=== PATIENT | female | born 1965 | race Caucasian/White ===

== ENCOUNTER 2019-12-18 00:43 | Day surgery (SDC) | payer OTHER, SELFPAY ==
[2019-12-11 15:05] VITALS: BMI 26.6
[2019-12-18 06:30] VITALS: BP 107/67; PULSE 79; RESP 18; TEMP 37; O2SAT 96; BMI 27.1
--- NOTE | 2019-12-18 06:53 | WPDANESEPPF ---
Anes - Initial Pre Proc Eval Procedure: Operation Date: 12/18/19 07:30 Proposed Procedures p Esophagogastroduodenoscopy - Aleksandar Rutherford MD Date/Time: 12/18/19 06:53 Surgeon: Aleksandar Rutherford MD Pre Op Diagnosis: Epigastric pain Patient Data Age: 54 Gender: F Height: 5 ft 6 in Weight: 76.3 kg Last Vital Signs Temp 37.0 C 12/18/19 06:30 Pulse 79 12/18/19 06:30 Resp 18 12/18/19 06:30 BP 107/67 12/18/19 06:30 Pulse Ox 96 12/18/19 06:30 Allergies Allergy/AdvReac Type Severity Reaction Status Date / Time morphine AdvReac Unknown Vomiting Verified 12/18/19 06:43 Home Medications Medication Instructions Recorded Confirmed Type Estropure 1 tab-cap PO DAILY 12/11/19 12/11/19 History Thyrotain 1 tab-cap PO DAILY 12/11/19 12/11/19 History Tudca 500 mg PO DAILY 12/11/19 12/11/19 History ascorbic acid (vitamin C) [Vitamin 1 g PO DAILY 12/11/19 12/11/19 History C] cholecalciferol (vitamin D3) 2,000 unit PO DAILY 12/11/19 12/11/19 History [Vitamin D3] cyanocobalamin (vitamin B-12) 1,000 mcg PO DAILY 12/11/19 12/11/19 History [Vitamin B-12] oucdx-7e-tsh-epa-fish oil [[place]-3 300 cap PO DAILY 12/11/19 12/11/19 History Fish Oil] vitamin B complex 1 cap PO DAILY 12/11/19 12/11/19 History vitamin E 1,000 unit PO DAILY 12/11/19 12/11/19 History vitamin K2 40 mcg PO DAILY 12/11/19 12/11/19 History Patient hx anesthesia problems: none Family hx anesthesia problems: none [facility] Past Medical History Medical History GERD (gastroesophageal reflux disease) Anes - Eval Final PreProcedure Day of Procedure 12/18/19 06:53 Patient weight: overweight Heart: regular rate and rhythm Lungs: clear to auscultation Airway: Mallampati scale class 1 Neurological: alert and oriented Last oral intake: >/= 8 hours ASA classification: II Emergent: no Anesthetic plan: proceed Anesthesia type and monitoring: general GIVS and standard monitoring Informed Consent: The patient's anesthetic plan and its attendant risks and benefits were discussed with the patient/family/POA. Questions were solicited and answers provided to the satisfaction of the patient/family/POA.
[2019-12-18] MEDS: LACTATED RINGERS 1,000 ML 150 ML IV CONT (07:05)
--- NOTE | 2019-12-18 07:31 | P.CONGI_ITS ---
Assessment and Plan Additional Plan This is a 54-year-old white female patient seen in evaluation for abdominal pain. Patient has had mid epigastric pain for several months. She describes this is coming in episodes. The episodes become more intense. They last for several hours typically. Previously they occurred perhaps 1 time a month but have become more frequent recently. She states these are not related to eating. These are not related to activity. In the past she has tried omeprazole with no relief of pain. She recently has tried a dietary supplement called katharine ursodeoxycholic acid. Family history is noncontributory. Current medications include fish oil testosterone thyroid replacement probiotics Family history noncontributory. Physical exam reveals patient to be alert. Oriented x3. HEENT exam unremarkable. She is anicteric. lungs are clear to auscultation and percussion. Heart is without murmur or extra sounds. Abdominal exam bowel sounds present soft nontender with no hepatosplenomegaly. Digital external rectal exam is normal. Impression episodic epigastric pain. Etiology remains unclear. No evidence of gallbladder disease to date. Plan is for a trial of antacids. Liver function tests will be obtained. An EGD will be performed. GI Consult Note Consult date/time: 12/18/19 07:31 HPI: Mita Nicole is a 54 year old female PMFSH Past Medical History Medical History GERD (gastroesophageal reflux disease) Meds Home Medications and Allergies Home Medications Medication Instructions Recorded Confirmed Type Estropure 1 tab-cap PO DAILY 12/11/19 12/11/19 History Thyrotain 1 tab-cap PO DAILY 12/11/19 12/11/19 History Tudca 500 mg PO DAILY 12/11/19 12/11/19 History ascorbic acid (vitamin C) [Vitamin 1 g PO DAILY 12/11/19 12/11/19 History C] cholecalciferol (vitamin D3) 2,000 unit PO DAILY 12/11/19 12/11/19 History [Vitamin D3] cyanocobalamin (vitamin B-12) 1,000 mcg PO DAILY 12/11/19 12/11/19 History [Vitamin B-12] ogmpw-1i-pkm-epa-fish oil [[place]-3 300 cap PO DAILY 12/11/19 12/11/19 History Fish Oil] vitamin B complex 1 cap PO DAILY 12/11/19 12/11/19 History vitamin E 1,000 unit PO DAILY 12/11/19 12/11/19 History vitamin K2 40 mcg PO DAILY 12/11/19 12/11/19 History Allergies Allergy/AdvReac Type Severity Reaction Status Date / Time morphine AdvReac Unknown Vomiting Verified 12/18/19 06:43 Vital Signs Vital Signs - 24 hr 12/18/19 06:30 Temperature 37.0 C Pulse Rate 79 Respiratory Rate 18 Blood Pressure 107/67 Pulse Oximetry 96
[2019-12-18 07:43] VITALS: BP 87/36; PULSE 73; RESP 20; O2SAT 98
[2019-12-18 07:53] VITALS: BP 108/58; PULSE 75; RESP 20; O2SAT 98
[2019-12-18 08:03] VITALS: BP 107/68; PULSE 66; RESP 20; O2SAT 100
== END 2019-12-18 08:24 | disposition home or self-care (01) ==
PROVIDERS: Visit Provider Internal Medicine Gastroenterology
PROC: 0DJ08ZZ Inspection of Upper Intestinal Tract, Via Natural or Artificial Opening Endoscopic (ICD-10-PCS; CPT 43235; principal; 2019-12-18 07:30)
DX: R10.13 Epigastric pain (principal); K21.9 Gastro-esophageal reflux disease without esophagitis
CPT/HCPCS: 43239; J2704; J7120

== ENCOUNTER 2019-12-27 12:50 | Outpatient (CLI) | payer OTHER, SELFPAY ==
--- NOTE | ~2019-12-27 | NM_ITS ---
EXAMINATION: NM hepatobiliary wo pharm DATE: 12/27/2019 17:10 INDICATION: Epigastric pain. COMPARISON: Ultrasound dated 08/04/2017 TECHNIQUE: 0.7 mCi Tc-99m mebrofenin (Choletec) was administered intravenously. Sequential anterior s cintigraphic images of the abdomen were obtained over one hour. 1 and 4 hour delayed anterior and rig ht lateral scintigrams were also obtained. FINDINGS: There is normal clearance of radiotracer from the blood pool. There is homogeneous tracer u ptake by the liver. Activity progresses to the duodenum by 20 minutes. The gallbladder is not visual ized on the 1 hour images. There is subtle accumulation of a small amount of activity in the region o f the gallbladder on both the anterior and right lateral images on the 4 hour delayed images. IMPRESSION: 1. Delayed accumulation of a small amount of activity in the region of the gallbladder suggestive of chronic cholecystitis. Specificity for exclusion of acute cholecystitis is however decreased by the relatively small amount of remaining hepatic/biliary activity on the 4 hour delayed images and if the re is continued clinical concern for acute cholecystitis could consider ultrasound for further evalua tion. Reviewed, dictated and finalized at location A. RWORKER LASTING IMPRESSION: 1. Delayed accumulation of a small amount of activity in the region of the gal lbladder suggestive of chronic cholecystitis. Specificity for exclusion of acut e cholecystitis is however decreased by the relatively small amount of remainin g hepatic/biliary activity on the 4 hour delayed images and if there is continu ed clinical concern for acute cholecystitis could consider ultrasound for furth er evaluation.
== END 2019-12-27 12:51 | disposition home or self-care (01) ==
LOC: ANHIMG 12:53
PROVIDERS: Visit Provider Internal Medicine Gastroenterology
DX: R10.13 Epigastric pain (principal)
CPT/HCPCS: 78226; A9537

== ENCOUNTER → 2020-01-16 10:25 | Outpatient (CLI) | payer OTHER, SELFPAY ==
--- NOTE | ~2020-01-16 | MM_ITS ---
EXAMINATION: MM screening [facility] BI w steve HISTORY: Screening mammogram TECHNIQUE: Craniocaudal and mediolateral oblique 3-D tomosynthesis images were obtained and synthetic 2-D images were generated. CAD analysis was submitted and interpreted. COMPARISON: Comparison to multiple prior studies sequentially, with oldest reviewed study dated 08/20. BREAST PARENCHYMAL COMPOSITION: The breasts are heterogeneously dense, which may obscure small masses . FINDINGS: There are developing clusters of calcifications bilaterally involving the lower inner quadr ant of the right breast and upper outer quadrant of the left breast. No suspicious masses or architec tural distortion are identified. IMPRESSION: 1. Developing clusters of bilateral breast calcifications. 2. Magnification views are recommended. BI-RADS Category 0: Incomplete: Needs additional imaging evaluation. Reviewed, dictated and finalized at location A. TOR SERVICES COORDINATOR
== END ==
PROVIDERS: Visit Provider Nurse Practitioner Obstetrics & Gynecology
DX: Z12.31 Encounter for screening mammogram for malignant neoplasm of breast (principal); R92.8 Other abnormal and inconclusive findings on diagnostic imaging of breast
CPT/HCPCS: 77063; 77067

== ENCOUNTER 2020-01-17 07:52 | Outpatient (CLI) | payer OTHER, SELFPAY ==
--- NOTE | ~2020-01-17 | US_ITS ---
EXAMINATION: US right upper quadrant EXAM DATE: 01/17/2020 08:15 INDICATION: Epigastric pain. TECHNIQUE: Multiple grayscale and Doppler images of the abdomen right upper quadrant were obtained (b y a technologist who performed the scan) and subsequently reviewed. Comparison is made to prior exami nation from 08/04/2017. FINDINGS: The pancreatic head and body are normal in appearance. The pancreatic tail is not visualized. The l iver has normal echogenicity and contour. There are no focal liver lesions identified. There is no evidence of intrahepatic biliary duct dilation. Portal venous flow was seen in the hepatopedal, nor mal direction and has normal Doppler waveform. No right-sided hydronephrosis. Common bile duct measures 6 mm, which is normal. The gallbladder wall is normal in thickness, with ex pected amount of distention. No sonographic evidence of pericholecystic fluid. There is cholelithia sis with wall echo shadow sign. Technologist performing exam reports patient did not demonstrate so nographic Ritchie's sign. Please note that this sign is less reliable in patients who have received p ain medication. IMPRESSION: 1. Cholelithiasis. Reviewed, dictated and finalized at location B. P SCIENTIST IMPRESSION: 1. Cholelithiasis.
== END 2020-01-17 07:53 | disposition home or self-care (01) ==
LOC: ANHIMG 07:55
PROVIDERS: Visit Provider Internal Medicine Gastroenterology
DX: R10.13 Epigastric pain (principal); K80.20 Calculus of gallbladder without cholecystitis without obstruction
CPT/HCPCS: 76705

== ENCOUNTER 2020-03-27 06:29 | Outpatient (CLI) | payer OTHER, SELFPAY ==
[2020-03-27 16:20] LABS: SARS-CoV-2 RNA PCR Negative
== END 2020-03-27 06:30 | disposition home or self-care (01) ==
LOC: ANHCOVIDDT 06:29
PROVIDERS: Surgery; Visit Provider Surgery
DX: Z01.818 Encounter for other preprocedural examination (principal); Z11.59 Encounter for screening for other viral diseases; K80.20 Calculus of gallbladder without cholecystitis without obstruction
CPT/HCPCS: 87635; C9803; U0003

== ENCOUNTER 2020-03-27 09:06 | Outpatient (CLI) | payer OTHER, SELFPAY ==
[2020-03-27 09:57] LABS: Alanine Aminotransferase 16 U/L (4-35); Albumin Level 3.9 g/dL (3.5-5.1); Alkaline Phosphatase 50 U/L (38-126); Amylase 74 U/L (30-110); Aspartate Amino Transferase 25 U/L (14-36); Bilirubin,Total 0.4 mg/dL (0.2-1.3); Lipase 132 U/L (23-300)
--- NOTE | 2020-03-27 09:59 | ECG_ITS ---
Measurements Intervals [place] Rate: 57 P: 0 AL: 196 QRS: 69 QRSD: 86 T: 29 QT: 403 QTc: 394 Interpretive Statements SINUS BRADYCARDIA BORDERLINE ECG Electronically Signed On 03-27-2020 10:29:04 CDT by Neno Silveira D.O.
== END 2020-03-27 09:07 | disposition home or self-care (01) ==
PROVIDERS: PCP Family Medicine; Visit Provider Surgery
DX: Z01.818 Encounter for other preprocedural examination (principal); K80.20 Calculus of gallbladder without cholecystitis without obstruction
CPT/HCPCS: 36415; 80076; 82150; 83690; 86850; 86900; 86901; 93005

== ENCOUNTER 2020-03-30 00:07 | Day surgery (SDC) | payer OTHER, SELFPAY ==
[2020-03-24 18:11] VITALS: BMI 27.2
[2020-03-30] VITALS (8 sets, daily range): BP systolic 97–144; BP diastolic 47–65; PULSE 44–69; RESP 10–18; TEMP 36.1–37.2; O2SAT 95–100
[2020-03-30] MEDS: IBUPROFEN IV 800 MG/200 ML 800 MG/200 ML BAG 400 MG IVPB (11:45)
[2020-03-30] MEDS: LACTATED RINGERS 1,000 ML 30 ML IV CONT ×2 (12:22→13:58)
--- NOTE | 2020-03-30 12:30 | WPDANESEPPF ---
Anes - Initial Pre Proc Eval Procedure: Operation Date: 03/30/20 13:30 Proposed Procedures p Laparoscopic Cholecystectomy, Possible Open - Virgil Harden DO Date/Time: 03/30/20 12:30 Surgeon: Virgil Harden DO Pre Op Diagnosis: Symptomatic cholelithiasis Patient Data Age: 54 Gender: F Height: 5 ft 6 in Weight: 75.5 kg Last Vital Signs Temp 37.2 C 03/30/20 12:00 Pulse 63 03/30/20 12:00 Resp 18 03/30/20 12:00 BP 110/58 L 03/30/20 12:00 Pulse Ox 99 03/30/20 12:00 Allergies Allergy/AdvReac Type Severity Reaction Status Date / Time morphine Allergy Severe Vomiting Verified 03/30/20 12:11 Home Medications Medication Instructions Recorded Confirmed Type Estropure 1 tab-cap PO DAILY 12/11/19 03/30/20 History Thyrotain 1 tab-cap PO TID 12/11/19 03/30/20 History ascorbic acid (vitamin C) [Vitamin 1 g PO DAILY 12/11/19 03/30/20 History C] cyanocobalamin (vitamin B-12) 1,000 mcg PO DAILY 12/11/19 03/30/20 History [Vitamin B-12] vitamin B complex 1 cap PO DAILY 12/11/19 03/30/20 History betaine HCl 500 mg PO DAILY 03/24/20 03/30/20 History cholecalciferol (vitamin D3) 125 mcg PO DAILY 03/24/20 03/30/20 History niacin 500 mg PO DAILY 03/24/20 03/30/20 History yiooy-9z-qkx-epa-fish oil [Fish 1 cap PO DAILY 03/24/20 03/30/20 History Oil] progesterone micronized 100 mg PO HS 03/24/20 03/30/20 History vitamin E 400 unit PO DAILY 03/24/20 03/30/20 History Patient hx anesthesia problems: none Family hx anesthesia problems: none PMFSH Past Medical History Medical History GERD (gastroesophageal reflux disease) Surgical History Surgical History History of ankle surgery left 2005 History of foot surgery right in 2001 left [id number] History of neck surgery 2007 History of rotator cuff surgery 2001 Family History Family History Father Hypertension Social History Social History Smoking status: Never smoker Alcohol intake: current Anes - Eval Final PreProcedure Day of Procedure 03/30/20 12:30 Patient weight: overweight Heart: regular rate and rhythm Lungs: clear to auscultation Airway: Mallampati scale class 1 Neurological: alert and oriented Last oral intake: >/= 8 hours ASA classification: II Emergent: no Anesthetic plan: proceed Anesthesia type and monitoring: general ETT and standard monitoring Informed Consent: The patient's anesthetic plan and its attendant risks and benefits were discussed with the patient/family/POA. Questions were solicited and answers provided to the satisfaction of the patient/family/POA.
--- NOTE | 2020-03-30 12:55 | PM.IMHP ---
H&P: HPI History of Present Illness Chief complaint: Symptomatic cholelithiasis Narrative: Mita Nicole is a 54 year old female who presents for elective lap demetra. She was having intermittent upper abdominal pain. U/s showed cholelithiasis. Review of Systems Review of Systems: All systems reviewed & are unremarkable except as noted in HPI and below Eyes: Eyes: Denies change in vision ENT: Denies hearing loss, Denies neck pain and Denies sore throat Cardiovascular: Cardiovascular: Denies chest pain and Denies dyspnea Respiratory: Respiratory: Denies cough, Denies dyspnea and Denies wheezing Genitourinary: Genitourinary: Denies hematuria and Denies dysuria Musculoskeletal: Musculoskeletal: Denies arthralgias, Denies joint swelling and Denies neck pain Allergic/Immunologic: Allergic/Immunologic: Denies wheezing [facility] Past Medical History Medical History GERD (gastroesophageal reflux disease) Surgical History Surgical History History of ankle surgery left 2006 History of foot surgery right in 2001 left [id number] History of neck surgery 2008 History of rotator cuff surgery 2001 Family History Family History Father Hypertension Social History Social History Smoking status: Never smoker Alcohol intake: current Meds Home Medications and Allergies Home Medications Medication Instructions Recorded Confirmed Type Estropure 1 tab-cap PO DAILY 12/11/19 03/30/20 History Thyrotain 1 tab-cap PO TID 12/11/19 03/30/20 History ascorbic acid (vitamin C) [Vitamin 1 g PO DAILY 12/11/19 03/30/20 History C] cyanocobalamin (vitamin B-12) 1,000 mcg PO DAILY 12/11/19 03/30/20 History [Vitamin B-12] vitamin B complex 1 cap PO DAILY 12/11/19 03/30/20 History betaine HCl 500 mg PO DAILY 03/24/20 03/30/20 History cholecalciferol (vitamin D3) 125 mcg PO DAILY 03/24/20 03/30/20 History niacin 500 mg PO DAILY 03/24/20 03/30/20 History wkjrf-7x-vss-epa-fish oil [Fish 1 cap PO DAILY 03/24/20 03/30/20 History Oil] progesterone micronized 100 mg PO HS 03/24/20 03/30/20 History vitamin E 400 unit PO DAILY 03/24/20 03/30/20 History Allergies Allergy/AdvReac Type Severity Reaction Status Date / Time morphine Allergy Severe Vomiting Verified 03/30/20 12:11 Vital Signs Vital Signs - 24 hr 03/30/20 12:00 Temperature 37.2 C Pulse Rate 63 Respiratory Rate 18 Blood Pressure 110/58 L Pulse Oximetry 99 Exam Const: General: alert; No acute distress Orientation/consciousness: patient oriented x3 Limitations: no limitations HENMT: Head: normocephalic and atraumatic Ears: hearing grossly normal bilaterally General nose exam: Normal external nose present and Normal nares present Mouth: Yes Normal oral and palatal mucosa present and Yes moist mucous membranes Eyes: General: appearance normal, both eyes and all related structures Conjunctivae: conjunctivae normal Sclera: sclerae normal Pupils: Equal, round and reactive pupils present EOM: EOMs intact bilaterally Neck: Neck: normal visual inspection, full ROM, no lymphadenopathy, supple and no JVD Lymphatic: no lymphadenopathy noted Chest: Chest palpation & inspection: normal inspection of the chest Resp: Effort & Inspection: normal respiratory effort and able to speak in complete sentences Auscultation: clear to auscultation bilaterally Percussion: percussion normal Cardio: Jugular venous distension: no JVD Rate: regular rate Rhythm: regular rhythm Heart sounds: S1 normal heart sound present and S2 normal heart sound present Peripheral pulses: Peripheral pulses 2+ throughout GI: Inspection: normal to inspection GI Palp: No abdominal tenderness, Yes Soft to palpation, No Guarding due to palpation present (GI), No Philip
[2020-03-30] MEDS: ceFAZolin 2 GM/D5W 50 ML 2 GM/50 ML BAG IVPB (13:03)
[2020-03-30] MEDS: BUPIVACAINE/EPINEPHRINE 0.5% 30 ML VIAL INFILTRATE (13:27)
--- NOTE | 2020-03-30 14:15 | PM.PROC ---
Procedure Note - Detailed Date of procedure: 03/30/20 Pre-op diagnosis: Symptomatic cholelithiasis Post-op diagnosis: same Procedure performed: Laparoscopic Cholecystectomy Description of procedure: Procedure as well as risks, benefits, and alternatives were discussed with patient. Written consent was obtained and placed in chart prior to procedure. The patient was brought back to surgical suite. Patient was placed in supine position on operating table. Time-out was done to confirm patient and procedure. Patient was then intubated by the anesthesia department. Abdomen was prepped and draped in sterile fashion using chlorhexidine prep. 0.5% bupivacaine with epinephrine was infiltrated at each site of incision. A 5 millimeter incision was made near the umbilicus, and a 5 millimeter Optiview trocar was advanced through the abdominal layers under direct visualization. Once inside the abdominal cavity, carbon dioxide was insufflated to create a pneumoperitoneum. The camera was inserted and the abdomen was inspected. No immediate abnormalities were identified. The patient was placed in reverse Trendelenburg position and rotated slightly to the left. An 11 millimeter incision was made in the subxiphoid region, and an 11 millimeter trocar was inserted under direct visualization. Two 5 millimeter incisions were made in the right upper quadrant, and two 5 millimeter trocars were inserted under direct visualization. The gallbladder was identified and grasped at the fundus and retracted superiorly. It was then grasped at the infundibulum retracted laterally. Careful dissection around the neck of the gallbladder was performed using blunt dissection with a [place] grasper and hook electrocautery. The cystic duct was identified, and a window was created behind it. The cystic artery was also identified and a window was created behind it. The critical view of safety was identified, visualizing the cystic duct running directly into the neck of the gallbladder, and the cystic artery running directly into the wall of the gallbladder. A 5 millimeter clip operations research engineer was then used to place 2 clips proximally and 1 clip distally on both the cystic duct and cystic artery. They were then both transected using endoscopic scissors. Once safely away from the ellen hepatitis, the gallbladder was dissected free from the liver bed using hook electrocautery. Hemostasis was achieved along the way. The gallbladder was removed completely and then removed through the subxiphoid port. The liver bed was then inspected. Hemostasis appeared adequate, and our clips appeared secure. The area was gently irrigated with sterile saline. No other abnormalities were seen. The patient was flattened out in bed, and 1 final inspection was made around the abdominal cavity. The subxiphoid port was removed, and a Jose C Honorio cone was used to approximate the fascia with an 0-Vicryl simple interrupted suture. The remaining ports were then removed under direct visualization, the camera was removed, and the pneumoperitoneum was released. The skin of the incisions was approximated using 4-0 Monocryl subcuticular sutures. Exofin glue was applied on top. The patient was then awakened from anesthesia, extubated, and transferred to recovery. Anesthesia: GETA and local (0.5% bupivicaine with epi) Surgeon: Virgil Harden DO Estimated blood loss (mL): 5 Drains: No Packing: No Pathology: yes Complications: No immediate complications Condition: stable (Patient tolerated procedure well, and is currently resting comfortably in recovery.) Disposition: same day Findings: This is a 54-year-old woman who presented with intermittent upper abdominal pain. She was also experiencing bloating and belching. She had workup for her symptoms including a HIDA scan and gallbladder ultrasound. The ultrasound showed evidence of cholelithiasis and HIDA scan showed delayed filling of the gallbladder consistent with cholecy
[2020-03-30] MEDS: ONDANSETRON INJ 4 MG/2 ML VIAL IV PUSH (14:31)
== END 2020-03-30 15:58 | disposition home or self-care (01) ==
PROVIDERS: PCP Family Medicine; Visit Provider Surgery
PROC: 0FT44ZZ Resection of Gallbladder, Percutaneous Endoscopic Approach (ICD-10-PCS; CPT 47562; principal; 2020-03-30 13:30)
DX: K80.10 Calculus of gallbladder with chronic cholecystitis without obstruction (principal); K21.9 Gastro-esophageal reflux disease without esophagitis
CPT/HCPCS: 47562; 88304; A9270; J0690; J1100; J1741; J2250; J2405; J2704; J2710; J3010; J7030; J7120

== ENCOUNTER 2023-06-12 19:13 | Emergency (ER) | payer OTHER, SELFPAY ==
--- NOTE | 2023-06-12 19:20 | ED.BACK ---
HPI - Back Pain/Injury General Chief Complaint: Back Pain/Injury Stated Complaint: lower back pain Time Seen by Provider: 06/12/23 19:21 Source: patient Mode of arrival: ambulatory Limitations: no limitations History of Present Illness HPI Narrative: Ms. Hebert is a 57-year-old female patient presenting to the clinic today with complaints of low back pain that occurred last night. She reports she was bending over to pick something up and felt the seizing in her back with pain. Reports pain to the low back. Denies any radiation of pain down her legs. Rates pain 8/10 with movement otherwise if she is sitting still she has no pain. Moving aggravates the pain. No loss of bowel or bladder or saddle anesthesia. Related Data Home Medications Medication Instructions Recorded Confirmed Estropure 1 tab-cap PO DAILY 12/11/19 06/12/23 Thyrotain 1 tab-cap PO TID 12/11/19 06/12/23 ascorbic acid (vitamin C) 1,000 mg 1 g PO DAILY 12/11/19 06/12/23 tablet (Vitamin C) cyanocobalamin (vitamin B-12) 1,000 mcg PO DAILY 12/11/19 06/12/23 1,000 mcg tablet (Vitamin B-12) betaine HCl 300 mg tablet 500 mg PO DAILY 03/24/20 06/12/23 cholecalciferol (vitamin D3) 125 125 mcg PO DAILY 03/24/20 06/12/23 mcg (5,000 unit) capsule rcnaz-8x-pwh-epa-fish oil 120 1 cap PO DAILY 03/24/20 06/12/23 mg-180 mg-60 mg-1,[address] (Fish Oil) progesterone micronized 100 mg 100 mg PO HS 03/24/20 06/12/23 capsule magnesium 500 mg tablet 500 mg PO DAILY 06/12/23 06/12/23 testosterone cypionate 200 mg/mL 200 mg subcut WEEKLY 06/12/23 06/12/23 intramuscular oil Allergies Allergy/AdvReac Type Severity Reaction Status Date / Time morphine Allergy Severe Vomiting Verified 06/12/23 19:22 Review of Systems Review of Systems: Pertinent positives per HPI. Patient denies any fever, chills, rash, headache, visual changes, dizziness, cough, runny nose, sore throat, shortness of breath, chest pain, palpitations, nausea, vomiting, diarrhea, constipation, abdominal pain, or any urinary issues. [facility] Past Medical History Medical History (Updated 06/12/23 @ 19:29 by Faisal Roche APRN) GERD (gastroesophageal reflux disease) Surgical History Surgical History History of ankle surgery left 2006 History of foot surgery right in 2001 left [id number] History of laparoscopic cholecystectomy 03/30/20 History of neck surgery 2007 History of rotator cuff surgery 2001 Family History Family History Father Hypertension Social History Social History Smoking status: Never smoker Alcohol intake: current Living arrangements: with family Occupation/Education: occupation Comments At the time of my signature, I reviewed and agree with the nursing past medical, surgical, social, and family history. There is no relevant family history pertinent to the patient complaint. Exam Narrative: General: Well-developed, well nourished, in no apparent distress Head: Normocephalic, atraumatic. Cardio: Regular rate and rhythm, s1 and s2 normal, no murmur appreciated. Resp: Clear to auscultation bilaterally, no rhonchi, rales, wheezing or rubs. Musculoskeletal: No deformity, mild tender to palpation over the lower lumbar spine, limited range of motion with flexion and extension as spine due to pain, negative foot drop, patellar reflexes 2+ bilaterally,pain reproduced with left leg lift at approx 60 degrees, muscle strength strong and equal, peripheral pulse strong, no edema, no cyanosis, cautious gait and station Course Course Emergency Course: Portions of this record may have been created with voice recognition software. Level of Care: Express Care Visit Vital Signs Vital signs: Vital signs reviewed MDM - Back Pain/Injury MDM Narrative
[2023-06-12 19:24] VITALS: BP 111/82; PULSE 72; RESP 16; TEMP 37.2; O2SAT 100
[2023-06-12 19:26] VITALS: BP 111/82; PULSE 72; RESP 16; TEMP 37.2; O2SAT 100
== END 2023-06-12 19:35 | disposition home or self-care (01) ==
PROVIDERS: Emergency Provider Nurse Practitioner Family
DX: S39.012A Strain of muscle, fascia and tendon of lower back, initial encounter (principal); X50.9XXA Other and unspecified overexertion or strenuous movements or postures, initial encounter; K21.9 Gastro-esophageal reflux disease without esophagitis
CPT/HCPCS: 99213; G0463

== ENCOUNTER 2024-07-31 07:07 | Day surgery (SDC) | payer OTHER, SELFPAY ==
[2024-07-23 13:31] VITALS: BMI 2935.0
[2024-07-24 14:19] VITALS: BMI 29.6
--- NOTE | 2024-07-30 13:05 | WPDANESEPPF ---
Anes - Initial Pre Proc Eval Procedure: Operation Date: 07/31/24 09:00 Proposed Procedures p Esophagogastroduodenoscopy - Aleksandar Rutherford MD Date/Time: 07/30/24 13:05 Surgeon: Aleksandar Rutherford MD Pre Op Diagnosis: Dysphagia, Patient Data Age: 58 Gender: F Height: 1.68 m Weight: 83.3 kg Allergies Allergy/AdvReac Type Severity Reaction Status Date / Time morphine Allergy Severe Vomiting Verified 07/31/24 07:45 Home Medications Medication Instructions Recorded Confirmed Type ascorbic acid (vitamin C) 1,000 mg 1 g PO DAILY 12/11/19 07/31/24 History tablet (Vitamin C) cyanocobalamin (vitamin B-12) 1,000 mcg PO DAILY 12/11/19 07/31/24 History 1,000 mcg tablet (Vitamin B-12) cholecalciferol (vitamin D3) 125 125 mcg PO DAILY 03/24/20 07/31/24 History mcg (5,000 unit) capsule [id number]-epa-fish oil 120 1 cap PO DAILY 03/24/20 07/31/24 History mg-180 mg-60 mg-1,200 mg capsule, DR (Fish Oil) magnesium 500 mg tablet 500 mg PO DAILY 06/12/23 07/31/24 History Beef Thyroid 1 tablet PO DAILY 07/24/24 07/31/24 History Lactobacillus 1 cap PO DAILY 07/24/24 07/31/24 History acidophilus-Bifidobac.animalis 2.5 billion cell capsule (Daily Probiotic) Mushrooms 1 cap PO DAILY 07/24/24 07/31/24 History iodine 150 mcg tablet 150 mcg PO DAILY 07/24/24 07/31/24 History melatonin 1 mg-magnesium citrate 1 tablet PO HS 07/24/24 07/31/24 History 71.5 mg tablet,delayed release melatonin 10 mg tablet 10 mg PO HS 07/24/24 07/31/24 History milk thistle 500 mg capsule 500 mg PO DAILY 07/24/24 07/31/24 History prasterone (dhea) 50 mg tablet 50 mg PO DAILY 07/24/24 07/31/24 History (DHEA) vitamin B complex 1 cap PO DAILY 07/24/24 07/31/24 History vitamin D3 250 mcg (10,000 1 cap PO DAILY 07/24/24 07/31/24 History unit)-vitamin K2 45 mcg capsule zinc 50 mg tablet 50 mg PO DAILY 07/24/24 07/31/24 History Patient hx anesthesia problems: none Family hx anesthesia problems: none Results Review: All pre-operative results and documents have been reviewed as part of the pre-operative evaluation. [facility] Past Medical History Medical History (Updated 07/31/24 @ 08:10 by Aleksandar Rutherford MD) GERD (gastroesophageal reflux disease) Surgical History Surgical History History of ankle surgery left 2006 History of foot surgery right in 2001 left [id number] History of laparoscopic cholecystectomy 03/30/20 History of neck surgery 2007 History of rotator cuff surgery 2001 Family History Family History Father Hypertension Social History Social History Smoking status: Never smoker Alcohol intake: current Substance use type: does not use Living arrangements: with family Occupation/Education: occupation Spiritual care concerns: No Anes - Eval Final PreProcedure Day of Procedure 07/30/24 13:05 Patient weight: overweight Heart: regular rate and rhythm Lungs: clear to auscultation Airway: Mallampati scale class II Neurological: alert and oriented Last oral intake: >/= 8 hours ASA classification: II Emergent: no Anesthetic plan: proceed Anesthesia type and monitoring: general GIVS and standard monitoring Results Review: All pre-operative results and documents have been reviewed as part of the pre-operative evaluation. Informed Consent: The patient's anesthetic plan and its attendant risks and benefits were discussed with the patient/family/POA. Questions were solicited and answers provided to the satisfaction of the patient/family/POA.
[2024-07-31 07:46] VITALS: BP 115/77; PULSE 67; RESP 15; TEMP 37.3; O2SAT 100
[2024-07-31] MEDS: LACTATED RINGERS 1,000 ML 150 ML IV CONT (07:53)
--- NOTE | 2024-07-31 08:08 | PM.HPGS ---
History of Present Illness History of Present Illness Consent: Risks, benefits, and alternatives have been discussed and questions answered. Patient agrees to proceed with procedure. Chief complaint: Dysphagia, Narrative: Mita Nicole is a 58 year old female referred for EGD. Patient reports that she recently developed upper respiratory symptoms. She developed a sore throat. Patient subsequently had the sensation of a lump in her throat as Toprol of may been stuck. She had no difficulty swallowing foods nor medications. Patient has noticed occasional substernal pain. She has not noticed significant improvement with antacids. Patient now referred for EGD to assess more thoroughly. Patient denies any weight loss or bleeding. Previous EGD with similar symptoms in 2019 was unremarkable. Review of Systems Review of Systems: All systems reviewed & are unremarkable except as noted in HPI and below PMFSH Past Medical History Medical History (Updated 07/31/24 @ 08:10 by Aleksandar Rutherford MD) GERD (gastroesophageal reflux disease) Surgical History Surgical History History of ankle surgery left 2005 History of foot surgery right in 2001 left [id number] History of laparoscopic cholecystectomy 03/30/20 History of neck surgery 2008 History of rotator cuff surgery 2001 Family History Family History Father Hypertension Social History Social History Smoking status: Never smoker Alcohol intake: current Substance use type: does not use Living arrangements: with family Occupation/Education: occupation Spiritual care concerns: No Meds Home Medications and Allergies Home Medications Medication Instructions Recorded Confirmed Type ascorbic acid (vitamin C) 1,000 mg 1 g PO DAILY 12/11/19 07/31/24 History tablet (Vitamin C) cyanocobalamin (vitamin B-12) 1,000 mcg PO DAILY 12/11/19 07/31/24 History 1,000 mcg tablet (Vitamin B-12) cholecalciferol (vitamin D3) 125 125 mcg PO DAILY 03/24/20 07/31/24 History mcg (5,000 unit) capsule [id number]-epa-fish oil 120 1 cap PO DAILY 03/24/20 07/31/24 History mg-180 mg-60 mg-1,200 mg capsule, DR (Fish Oil) magnesium 500 mg tablet 500 mg PO DAILY 06/12/23 07/31/24 History Beef Thyroid 1 tablet PO DAILY 07/24/24 07/31/24 History Lactobacillus 1 cap PO DAILY 07/24/24 07/31/24 History acidophilus-Bifidobac.animalis 2.5 billion cell capsule (Daily Probiotic) Mushrooms 1 cap PO DAILY 07/24/24 07/31/24 History iodine 150 mcg tablet 150 mcg PO DAILY 07/24/24 07/31/24 History melatonin 1 mg-magnesium citrate 1 tablet PO HS 07/24/24 07/31/24 History 71.5 mg tablet,delayed release melatonin 10 mg tablet 10 mg PO HS 07/24/24 07/31/24 History milk thistle 500 mg capsule 500 mg PO DAILY 07/24/24 07/31/24 History prasterone (dhea) 50 mg tablet 50 mg PO DAILY 07/24/24 07/31/24 History (DHEA) vitamin B complex 1 cap PO DAILY 07/24/24 07/31/24 History vitamin D3 250 mcg (10,000 1 cap PO DAILY 07/24/24 07/31/24 History unit)-vitamin K2 45 mcg capsule zinc 50 mg tablet 50 mg PO DAILY 07/24/24 07/31/24 History Allergies Allergy/AdvReac Type Severity Reaction Status Date / Time morphine Allergy Severe Vomiting Verified 07/31/24 07:45 Vital Signs Vital Signs - 24 hr 07/31/24 07:46 Temperature 99.1 F Pulse Rate 67 Respiratory Rate 15 Blood Pressure 115/77 Pulse Oximetry 100 Oxygen Delivery Room Air Exam Narrative: Physical exam reveals patient to be alert. Vital signs stable. HEENT exam is unremarkable. Patient is anicteric. Lungs are clear to auscultation and percussion is without murmur or extra sounds. Abdomen bowel sounds are present soft nontender with no organomegaly. Assessment and Plan Assessment and plan (1) Epigastric abdomin
[2024-07-31 08:57] VITALS: BP 87/67; PULSE 69; RESP 16; O2SAT 97
[2024-07-31 09:07] VITALS: BP 96/69; PULSE 67; RESP 16; O2SAT 99
[2024-07-31 09:17] VITALS: BP 117/87; PULSE 66; RESP 18; O2SAT 99
--- NOTE | 2024-07-31 09:57 | WPDANESPN ---
Anes - Prog Note Post-Op Date/Time: 07/31/24 09:57 Cardiovascular status: normal Respiratory status: normal Airway patency: baseline Mental status: baseline Post-Op hydration status: normal Vital Signs: Last Vital Signs Temp 37.3 C 07/31/24 07:46 Pulse 66 07/31/24 09:17 Resp 18 07/31/24 09:17 BP 117/87 07/31/24 09:17 Pulse Ox 99 07/31/24 09:17 O2 Del Method Room Air 07/31/24 09:17 Pain Score (VAS): 0 I/O: Intake & Output 07/30/24 07/31/24 07/31/24 23:59 07:59 15:59 Intake Total 450 Balance 450 Post-procedural complaints: none Patient Feedback: Patient satisfied with anesthetic care. Other Findings: Patient vital signs back to baseline. Patient denies nausea and vomiting. Patient's pain under control. Patient OK for discharge.
== END 2024-07-31 09:30 | disposition home or self-care (01) ==
PROVIDERS: Visit Provider Internal Medicine Gastroenterology
PROC: 0DJ08ZZ Inspection of Upper Intestinal Tract, Via Natural or Artificial Opening Endoscopic (ICD-10-PCS; CPT 43235; principal; 2024-07-31 09:00)
DX: R10.13 Epigastric pain (principal); F45.8 Other somatoform disorders
CPT/HCPCS: 43239